=== PATIENT | male | born 1940 | race Caucasian/White ===

== ENCOUNTER 2016-12-01 08:47 | Emergency (ER) | payer OTHER ==
[2016-12-01] MEDS ORDERED: KETOROLAC TROMETHAMINE 60 MG/2 ML VIAL IM ONE (08:55)
[2016-12-01] MEDS ORDERED: ORPHENADRINE CITRATE 60 MG/2ML IM ONE (08:55)
[2016-12-01] MEDS ORDERED: ORPHENADRINE CITRATE 60 MG/2ML ONE (08:56)
[2016-12-01] MEDS ORDERED: KETOROLAC TROMETHAMINE 60 MG/2 ML VIAL ONE (08:56)
[2016-12-01 09:54] VITALS: BP 128/67
--- NOTE | 2016-12-01 11:16 | ED Physician Documentation ---
Low Back Pain - HISTORIAN Historian: patient, friend - [facility] Stated Complaint: back pain Chief Complaint: Low Back Pain/ Injury Additional Information: low back pain on lt due to yard work and lifting History: history of chronic pain: Onset: days ago (2) Duration: continues in ED Context: lifting, turning, bending Where: home Severity: moderate Quality: burning, dull, similar- prior back pain (nop new trauma) Associated Symptoms: denies: fever Worsened By:: upright position - ROS CONST: no problems CVS/RESP: none EYES/ENT: none MS/SKIN/LYMPH: none GI/: denies: abdominal pain - PAST HX Past History: back pain, other (htn gerd hi chol) Surgeries/Procedures: appendectomy, cholecystectomy, other (rt knee) Allergies/Adverse Reactions: Allergies Allergy/AdvReac Type Severity Reaction Status Date / Time meperidine HCl [From Demerol] Allergy Verified 12/01/16 09:10 morphine Allergy Verified 12/01/16 09:10 Home Medications: Ambulatory Orders Medication Instructions Recorded Aspirin [Adult Low Dose Aspirin EC] 81 mg PO DAILY u2 10/19/12 - SOCIAL HX Smoking History: non-smoker Alcohol Use: none Drug Use: none - FAMILY HX Family History: no significant history - VITAL SIGNS Vital Signs: Vital Signs Temp Pulse Resp BP Pulse Ox 98.2 F 88 18 128/67 98 12/01/16 09:26 12/01/16 09:26 12/01/16 09:26 12/01/16 09:26 12/01/16 09:26 - REVIEWED ASSESSMENTS Nursing Assessment Reviewed: Yes Vitals Reviewed: Yes ED Results Lab/Radiology - Orders Orders: ED Orders Category Date Time Status Ketorolac Tromethamine [Toradol] Med 12/01/16 08:56 Discontinued 60 mg .ROUTE .STK-MED ONE Ketorolac Tromethamine [Toradol] Med 12/01/16 08:55 Discontinued 60 mg IM NOW ONE Orphenadrine Citrate [Norflex] Med 12/01/16 08:56 Discontinued 60 mg .ROUTE .STK-MED ONE Orphenadrine Citrate [Norflex] Med 12/01/16 08:55 Discontinued 60 mg IM NOW ONE Low Back Pain/Injury - Physical Exam General Appearance: moderate distress EENT: eye inspection normal Neck: non-tender Resp/CVS: chest non-tender, breath sounds nml, heart sounds nml, no resp. distress, lungs clear, reg. rate & rhythm. No: tenderness Abdomen: non-tender Back: No: non-tender (palp pain spasm lt low back reprod pain--spasm noted) Straight Leg Raising: Positive Left Neuro/Psych: oriented x3 Skin: warm/dry, normal color. No: jaundice Extremities: non-tender, normal range of motion Discharge Clincal Impression: exab chronic low back pain Referrals: Josh Perez MD [Primary Care Provider] - 2 Days Home Medications: Ambulatory Orders Aspirin [Adult Low Dose Aspirin EC] 81 mg PO DAILY u2 10/19/12 Comments: meds hmp rest Condition: Fair Disposition: 01 HOME, SELF-CARE Decision to Admit: NO Decision Time: 11:21
== END 2016-12-01 09:26 | disposition home or self-care (01) ==
LOC: ED 08:47
DX: M54.5 Low back pain (principal)
CPT/HCPCS: J1885; J2360; 96372; 99283

== ENCOUNTER 2018-04-05 07:49 | Outpatient (CLI) | payer OTHER ==
--- NOTE | 2018-04-05 09:19 | Diagnostic Imaging Report ---
INO RICHARDSON [facility] [address] [facility] [address] [address] Report Submission Date: Apr 05, 2018 8:42:07 AM CDT Patient Study Name: BILLIE DE SOUZA Date: Apr 05, 2018 8:07:08 AM CDT Modality Type: DX Gender: M Description: LT SI JOINT : 40 Institution: [facility] Physician: INO RICHARDSON Examination: Left sacroiliac joint. History: LEFT HIP PAIN HX OF CHRONIC BACK PAIN WORSENING X 2 WEEKS (Hx) Comparison exams: None available. Findings: 2 views of the left sacroiliac joint demonstrate generalized osteopenia. Sacroiliac joint without evidence for fracture or fusion. No ossific spurring. Impression: No acute appearing osseous abnormality. Electronically signed on Apr 05, 2018 8:42:07 AM CDT by: Mauricio MORALES
--- NOTE | 2018-04-05 09:19 | Diagnostic Imaging Report ---
INO RICHARDSON [facility] [address] [facility] [address] [address] Report Submission Date: Apr 05, 2018 8:40:33 AM CDT Patient Study Name: BILLIE DE SOUZA Date: Apr 05, 2018 8:02:20 AM CDT Modality Type: DX Gender: M Description: PELVIS W/LT HIP : 40 Institution: [facility] Physician: INO RICHARDSON Examination: Plain film pelvis/left hip History: LEFT HIP PAIN HX OF CHRONIC BACK PAIN WORSENING X 2 WEEKS (Hx) Comparison exams: None provided Findings: 2 views of the pelvis and left hip demonstrates osteopenia. No fracture no dislocation. Articular degenerative changes. No soft tissue abnormality. Impression: Scattered degenerative changes. No acute appearing osseous abnormality. Electronically signed on Apr 05, 2018 8:40:33 AM CDT by: Mauricio MORALES
== END 2018-04-05 07:50 ==
LOC: RAD 07:49
PROVIDERS: ATTEND Internal Medicine Cardiovascular Disease
DX: M25.552 Pain in left hip (principal); I10 Essential (primary) hypertension; I25.10 Atherosclerotic heart disease of native coronary artery without angina pectoris; Z98.61 Coronary angioplasty status
CPT/HCPCS: 72202

== ENCOUNTER 2019-04-26 14:11 | Outpatient (CLI) | payer OTHER ==
[2019-04-26 14:58] LABS: MAGNESIUM 1.8 mIU/l (1.6-2.3); eGFR (Non-African) > 60
[2019-04-26 17:14] LABS: A1C 6.5 % (<5.7)
== END 2019-04-26 14:13 ==
LOC: LAB 14:11
PROVIDERS: ATTEND Family Medicine
DX: I10 Essential (primary) hypertension (principal); M62.838 Other muscle spasm; R73.9 Hyperglycemia, unspecified
CPT/HCPCS: 36415; 80053; 83036; 83735

== ENCOUNTER 2019-05-03 13:49 | Outpatient (CLI) | payer OTHER | END 2019-05-03 13:52 | LOC: LABRHC 13:49 | PROVIDERS: ATTEND Family Medicine | DX: K13.0 Diseases of lips (principal) | CPT/HCPCS: 87070 ==